=== PATIENT | female | born 1965 | race American Indian/Alaskan Native ===

== ENCOUNTER → 2018-10-09 | Outpatient (CLI) | payer MEDICARE, OTHER ==
[~2018-10-09] MED LIST: ? CHOLESTEROL MED; ACEBUTCAFT PO; ALBIPROI INH; ALBU90OI6 INH; ALBU90OI61 INH; AMIT50; AMIT50 PO; AMIT75 PO; AMOCLA875 PO; ANTOXYBENA LEFTEAR; ASPI81CH PO; ATOR40TA; AZIT250 PO; BENZ100A PO; Bactrim Ds Tab1 EACH PO; CEPH500 PO; CODACE30 PO; CYCL10 PO; Crutch1 EACH MISC; DOXE25 PO; FLUSAL2505; GABA300 PO; HYDACE5; HYDACE7.5; Hydrocodone-Ap1 EA23 PO; LEVO750 PO; Lovastatin20 MG PO; MECL25 PO; METCAR500; METF500C PO; NAPR500 PO; Norco 10-325 T1 EACH PO; OXYACE5T PO; OXYACE7.5T PO; OXYC10ER PO; OXYC15ER PO; OXYC5; PRED10 PO; PROC10 PO; Percocet 5-3251 EACH PO; Prednisone20 MG PO; QUET200; QUET200 PO; ROPI2 PO; RXTRAM50 PO; Ropinirole HCl4 MG PO; SERT100 PO; SERT50 PO; SIMV10 PO; TOPI50 PO; TRAM50 PO; Valium5 MG PO; Ventolin/Prove6.7 GM INH; [UNRECOGNIZED DRUG - REMARK]
== END | disposition home or self-care (01) ==
LOC: LAB SHORT 13:54 → LAB 13:54
DX: E11.9 Type 2 diabetes mellitus without complications (principal)
CPT/HCPCS: 82043

== ENCOUNTER → 2019-10-09 | Outpatient (CLI) | payer MEDICARE, OTHER | END | disposition home or self-care (01) | LOC: LAB 19:39 → LAB SHORT 19:39 | DX: R10.9 Unspecified abdominal pain (principal) | CPT/HCPCS: 87077; 87086; 87186 ==

== ENCOUNTER 2021-01-18 18:14 | Emergency (ER) | payer MEDICARE, OTHER ==
[~2021-01-18] VITALS: Ht 160 cm; Wt 83.0 kg
[~2021-01-18 18:14] MED LIST changes: +Amitriptyline100 MG PO; +FLUT1DIS5 INH; +Flonase 0.05% N16 GM; +GLIP10 PO; +LEVSOD75 PO; +MONT10T PO; +Neurontin 300300 MG PO; +QUET100 PO
[2021-01-18 18:46] LABS: BASOPHILS ABSOLUTE AUTO 0.12 K/mm3 (0.00-0.23); BASOPHILS PERCENT AUTO 1 % (0-2); EOSINOPHILS ABSOLUTE AUTO 0.29 K/mm3 (0.00-0.68); EOSINOPHILS PERCENT AUTO 2 % (0-6); Hematocrit 46.6 % (33.0-51.0); Hemoglobin 15.6 g/dL (11.5-16.0); IMMATURE GRAN PERCENT AUTO 1 % (0-1); LYMPHOCYTES ABSOLUTE AUTO 6.63 K/mm3 (0.84-5.20); LYMPHOCYTES PERCENT AUTO 40 % (21-46); MONOCYTES ABSOLUTE AUTO 1.04 K/mm3 (0.16-1.47); MONOCYTES PERCENT AUTO 6 % (4-13); Mean Corpuscular HGB 29.1 pg (26.0-34.0); Mean Corpuscular HGB Conc 33.5 g/dL (31.5-36.5); Mean Corpuscular Volume 87 fL (80-100); Mean Platelet Volume 10.9 fL (9.1-12.4); NEUTROPHILS ABSOLUTE AUTO 8.56 K/mm3 (1.96-9.15); NEUTROPHILS PERCENT AUTO 51 % (41-73); Platelet Count 365 K/mm3 (150-400); RDW Coefficient Variation 13.5 % (11.7-14.2); RDW Standard Deviation 43.4 fL (35.1-46.3); Red Blood Cell Count 5.36 M/mm3 (3.80-5.20); White Blood Cell Count 16.74 K/mm3 (4.00-11.30)
[2021-01-18 19:15] LABS: Alanine Aminotransfer (ALT/SGP 41 U/L (12-78); Albumin, Blood 4.1 g/dL (3.4-5.0); Alk Phos 138 U/L (50-136); Anion Gap 7 mmol/L (6-16); Aspartate Aminotrans (AST/SGOT 30 U/L (12-37); Bilirubin, Total 0.3 mg/dL (0.1-1.0); Blood Urea Nitrogen 14 mg/dL (8-24); Bun/Creatinine Ratio 20.5 (12.0-20.0); CO2, Blood 22 mmol/L (21-32); Calcium, Blood 9.8 mg/dL (8.5-10.1); Chloride, Blood 106 mmol/L (98-108); Creatinine, Blood 0.68 mg/dL (0.40-1.00); Globulin, Blood 4.3 g/dL (2.2-4.0); Glomerular Filtration Rate >60 (60-); Glucose, Blood 203 mg/dL (70-99); Potassium, Blood 4.3 mmol/L (3.5-5.5); Sodium, Blood 135 mmol/L (136-145); Total Protein, Blood 8.4 g/dL (6.4-8.2)
[2021-01-18 20:31] LABS: Troponin I <0.015 ng/mL (0.000-0.040)
[2021-01-18] MEDS ORDERED: ALBU2.5V5 INH (23:02)
[2021-01-18] MEDS ORDERED: Prednisone50 MG PO (23:02)
== END 2021-01-18 23:20 | disposition home or self-care (01) ==
LOC: ER 18:14
PROVIDERS: Emergency Medicine
DX: J45.901 Unspecified asthma with (acute) exacerbation (principal); E11.9 Type 2 diabetes mellitus without complications; Z79.899 Other long term (current) drug therapy; Z88.5 Allergy status to narcotic agent
CPT/HCPCS: 71045; 80053; 84484; 85025; 93005; 93010; 94644; 94645; 96365; 96375; 99285-25; A9270; J1100; J3475

== ENCOUNTER → 2021-03-18 | Outpatient (CLI) | payer MEDICARE, OTHER ==
[~2021-03-18] MED LIST changes: +ALBU2.5V5 INH; +Prednisone50 MG PO
== END | disposition home or self-care (01) ==
LOC: LAB SHORT 15:40 → LAB 15:40
DX: E03.9 Hypothyroidism, unspecified (principal)
CPT/HCPCS: 84443

== ENCOUNTER → 2022-04-07 | Outpatient (CLI) | payer MEDICARE, OTHER ==
[2022-04-07 16:12] LABS: Bilirubin, Total 0.2 mg/dL (0.1-1.0); Bun/Creatinine Ratio 21.4 (12.0-20.0); Calcium, Blood 9.6 mg/dL (8.5-10.1); Creatinine, Blood 0.79 mg/dL (0.40-1.00); Globulin, Blood 4.2 g/dL (2.2-4.0); Potassium, Blood 4.4 mmol/L (3.5-5.5); Total Protein, Blood 8.2 g/dL (6.4-8.2)
== END ==
LOC: LAB SHORT 13:10
PROVIDERS: Internal Medicine
DX: M54.50 Low back pain, unspecified (principal)
CPT/HCPCS: 80053

== ENCOUNTER → 2022-10-13 | Outpatient (CLI) | payer MEDICARE, OTHER ==
[2022-10-13 14:55] LABS: BASOPHILS ABSOLUTE AUTO 0.12 K/mm3 (0.00-0.23); BASOPHILS PERCENT AUTO 1 % (0-2); EOSINOPHILS PERCENT AUTO 1 % (0-6); Hematocrit 45.2 % (33.0-51.0); Hemoglobin 14.9 g/dL (11.5-16.0); IMMATURE GRAN ABSOLUTE AUTO 0.05 K/mm3 (0.00-0.10); IMMATURE GRAN PERCENT AUTO 0 % (0-1); LYMPHOCYTES ABSOLUTE AUTO 4.69 K/mm3 (0.84-5.20); LYMPHOCYTES PERCENT AUTO 32 % (21-46); MONOCYTES ABSOLUTE AUTO 0.82 K/mm3 (0.16-1.47); MONOCYTES PERCENT AUTO 6 % (4-13); Mean Corpuscular HGB 28.9 pg (26.0-34.0); Mean Corpuscular Volume 88 fL (80-100); NEUTROPHILS ABSOLUTE AUTO 8.63 K/mm3 (1.96-9.15); NEUTROPHILS PERCENT AUTO 60 % (41-73); Platelet Count 346 K/mm3 (150-400); RDW Coefficient Variation 13.9 % (11.7-14.2); Red Blood Cell Count 5.15 M/mm3 (3.80-5.20); White Blood Cell Count 14.51 K/mm3 (4.00-11.30)
[2022-10-13 15:46] LABS: Alanine Aminotransfer (ALT/SGP 54 U/L (12-78); Albumin, Blood 3.8 g/dL (3.4-5.0); Albumin/Globulin Ratio 0.9 (0.8-1.8); Alk Phos 134 U/L (50-136); Anion Gap 7 mmol/L (6-16); Aspartate Aminotrans (AST/SGOT 30 U/L (12-37); Bilirubin, Total 0.2 mg/dL (0.1-1.0); Blood Urea Nitrogen 19 mg/dL (8-24); Bun/Creatinine Ratio 23.3 (12.0-20.0); CHOL/HDL RATIO 5.9; CO2, Blood 26 mmol/L (21-32); Calcium, Blood 9.4 mg/dL (8.5-10.1); Chloride, Blood 105 mmol/L (98-108); Cholesterol 261 mg/dL (50-200); Creatinine, Blood 0.82 mg/dL (0.40-1.00); Globulin, Blood 4.2 g/dL (2.2-4.0); Glomerular Filtration Rate 83 (60-); Glucose, Blood 154 mg/dL (70-99); HDL Cholesterol 44 mg/dL (>39); LDL/HDL RATIO 3.8; Low Density Lipoprotein Chol 168 mg/dL (0-110); Potassium, Blood 4.6 mmol/L (3.5-5.5); Sodium, Blood 138 mmol/L (136-145); Triglycerides 244 mg/dL (30-160); Very Low Density Lipoprot Chol 48 mg/dL (6-32)
== END | disposition home or self-care (01) ==
LOC: LAB SHORT 11:46
PROVIDERS: Family Medicine
DX: E03.9 Hypothyroidism, unspecified (principal); E11.9 Type 2 diabetes mellitus without complications; E78.5 Hyperlipidemia, unspecified; Z79.84 Long term (current) use of oral hypoglycemic drugs
CPT/HCPCS: 80053; 80061; 83036; 84443; 85025

== ENCOUNTER → 2024-02-07 | Outpatient (CLI) | payer MEDICARE, OTHER | END | disposition home or self-care (01) | LOC: LAB SHORT 16:31 → LAB 16:31 | DX: E11.9 Type 2 diabetes mellitus without complications (principal); Z79.84 Long term (current) use of oral hypoglycemic drugs ==

== ENCOUNTER 2024-04-11 13:00 | Emergency (ER) | payer MEDICARE, OTHER ==
[~2024-04-11] VITALS: Ht 160 cm; Wt 78.9 kg
[2024-04-11 13:22] VITALS: BP 122/66
== END 2024-04-11 13:29 | disposition left against medical advice (07) ==
LOC: ER 13:00
DX: E11.65 Type 2 diabetes mellitus with hyperglycemia (principal); Z53.21 Procedure and treatment not carried out due to patient leaving prior to being seen by health care provider
CPT/HCPCS: 82947

== ENCOUNTER → 2024-07-13 | Outpatient (CLI) | payer MEDICARE, OTHER | LOC: LAB 15:16 → LAB SHORT 15:16 | DX: R10.13 Epigastric pain (principal) | CPT/HCPCS: 83690 ==

== ENCOUNTER 2025-01-29 19:15 | Inpatient (IN) | payer MEDICARE, OTHER ==
[~2025-01-29] VITALS: Ht 160 cm; Wt 76.7 kg
[2025-01-29 19:50] LABS: BASOPHILS ABSOLUTE AUTO 0.07 K/mm3 (0.00-0.23); BASOPHILS PERCENT AUTO 1 % (0-2); EOSINOPHILS ABSOLUTE AUTO 0.19 K/mm3 (0.00-0.68); EOSINOPHILS PERCENT AUTO 2 % (0-6); Hematocrit 42.8 % (33.0-51.0); Hemoglobin 14.3 g/dL (11.5-16.0); IMMATURE GRAN ABSOLUTE AUTO 0.06 K/mm3 (0.00-0.10); IMMATURE GRAN PERCENT AUTO 1 % (0-1); LYMPHOCYTES ABSOLUTE AUTO 2.69 K/mm3 (0.84-5.20); LYMPHOCYTES PERCENT AUTO 22 % (21-46); MONOCYTES ABSOLUTE AUTO 0.61 K/mm3 (0.16-1.47); MONOCYTES PERCENT AUTO 5 % (4-13); Mean Corpuscular HGB 27.4 pg (26.0-34.0); Mean Corpuscular HGB Conc 33.4 g/dL (31.5-36.5); Mean Corpuscular Volume 82 fL (80-100); Mean Platelet Volume 11.2 fL (9.1-12.4); NEUTROPHILS ABSOLUTE AUTO 8.37 K/mm3 (1.96-9.15); NEUTROPHILS PERCENT AUTO 70 % (41-73); Platelet Count 329 K/mm3 (150-400); RDW Coefficient Variation 13.8 % (11.7-14.2); RDW Standard Deviation 41.3 fL (35.1-46.3); Red Blood Cell Count 5.22 M/mm3 (3.80-5.20); White Blood Cell Count 11.99 K/mm3 (4.00-11.30)
[2025-01-29 20:37] LABS: Albumin/Globulin Ratio 0.9 (0.8-1.8); Bilirubin, Total 0.6 mg/dL (0.1-1.0); Bun/Creatinine Ratio 20.7 (12.0-20.0); Calcium, Blood 9.7 mg/dL (8.5-10.1); Creatinine, Blood 0.53 mg/dL (0.40-1.00); Globulin, Blood 4.6 g/dL (2.2-4.0); Potassium, Blood 5.3 mmol/L (3.5-5.5); Total Protein, Blood 8.6 g/dL (6.4-8.2)
[2025-01-29 20:51] LABS: Base Excess Venous 2.5 mmol/L; Bicarbonate Venous 26.4 mmol/L (24.0-30.0); PCO2 Venous 40.2 mmHg (38-42); pH Blood Venous 7.43 (7.34-7.37)
[2025-01-29] MEDS ORDERED: Metoclopramide HCl 5MG / ML 2ML Vial IV ONE (21:10)
[2025-01-29] MEDS ORDERED: Lactated Ringer's 1,000 ML IV ONE ×2 (21:10→23:10)
[2025-01-29] MEDS ORDERED: Morphine Sulfate 4 MG/1 ML Injection IV ONE ×2 (21:10→22:35)
[2025-01-29 21:27] LABS: Base Excess Venous 4.7 mmol/L; Bicarbonate Venous 27.8 mmol/L (24.0-30.0); pH Blood Venous 7.41 (7.34-7.37)
[2025-01-29 21:28] LABS: Source, Urine Clean Catch
[2025-01-29 21:40] LABS: Bilirubin, Urine Neg (Neg); Blood, Urine 1+ (Neg); Glucose Qualitative, Urine 4+ (Neg); Ketones, Urine 1+ (Neg); Leukocyte Esterase, Urine Neg (Neg); Nitrite, Urine Neg (Neg); Protein, Urine 1+ (Neg); Urobilinogen, Urine NORM (Normal)
[2025-01-29 21:48] LABS: Appearance, Urine Hazy (Clear); Color, Urine Pale Yellow (P-Yellow); Red Blood Cells, Urine 0-2 /hpf (0-2)
[2025-01-29 21:49] LABS: Bacteria Many /hpf; Squamous Epithelial Cells Not Seen /hpf (Few)
[2025-01-29] MEDS ORDERED: OXYCODONE-ACET1 EAC3 PO (22:35)
[2025-01-29] MEDS ORDERED: JARDIANCE25 MG PO (22:36)
[2025-01-29] MEDS ORDERED: CYMBALTA30 M2 PO (22:36)
[2025-01-29] MEDS ORDERED: PREG150 PO (22:37)
[2025-01-29] MEDS ORDERED: EUTHYROX50 MC1 PO (22:37)
[2025-01-29] MEDS ORDERED: GLUCOPHAGE1000 M1 PO (22:37)
[2025-01-29] MEDS ORDERED: ROSUVASTATIN CA10 MG PO (22:38)
[2025-01-29] MEDS ORDERED: levETIRAcetam 500 MG in NS 100 ML IV SCH (23:10)
[2025-01-29] MEDS ORDERED: HYDROmorphone HCl/Pf 1MG SYR IV ONE (23:10)
[2025-01-29] MEDS ORDERED: CefTRIAXone Sodium 1,000 MG in NS 50 ML IV ONE (23:10)
[2025-01-30] MEDS ORDERED: Metoclopramide HCl 5MG / ML 2ML Vial IV ONE (00:05)
[2025-01-30] MEDS ORDERED: DiphenhydrAMINE HCl 50 MG/ML 1ML Vial IV ONE ×2 (00:05→04:30)
[2025-01-30] MEDS ORDERED: HYDROmorphone HCl/Pf 1MG SYR IV ONE (00:05)
[2025-01-30] MEDS ORDERED: Acetaminophen 325 MG TABLET PO PRN (01:10)
[2025-01-30] MEDS ORDERED: Insulin Regular 100 Unit/ML 1ML Dose SC ONE (02:30)
[2025-01-30 03:00] VITALS: BP 119/70
[2025-01-30] MEDS ORDERED: Ondansetron HCl 2 MG / ML 2ML Vial IV PRN (03:35)
[2025-01-30] MEDS ORDERED: NS 1,000 ML IV SCH (03:35)
[2025-01-30] MEDS ORDERED: Insulin Glargine-Yfgn 100 Unit/mL 3 ML SYR SC SCH (05:00)
[2025-01-30] MEDS ORDERED: Levothyroxine Sodium 0.05 MG Tab PO SCH (06:00)
[2025-01-30] MEDS ORDERED: Insulin Human Lispro 100 Units/ML 3ML Syringe SC SCH ×2 (06:00→16:30)
[2025-01-30 06:03] LABS: BASOPHILS ABSOLUTE AUTO 0.06 K/mm3 (0.00-0.23); BASOPHILS PERCENT AUTO 1 % (0-2); EOSINOPHILS ABSOLUTE AUTO 0.32 K/mm3 (0.00-0.68); EOSINOPHILS PERCENT AUTO 3 % (0-6); Hematocrit 37.6 % (33.0-51.0); Hemoglobin 12.5 g/dL (11.5-16.0); IMMATURE GRAN ABSOLUTE AUTO 0.04 K/mm3 (0.00-0.10); IMMATURE GRAN PERCENT AUTO 0 % (0-1); LYMPHOCYTES ABSOLUTE AUTO 4.84 K/mm3 (0.84-5.20); LYMPHOCYTES PERCENT AUTO 40 % (21-46); MONOCYTES ABSOLUTE AUTO 0.75 K/mm3 (0.16-1.47); MONOCYTES PERCENT AUTO 6 % (4-13); Mean Corpuscular HGB 27.7 pg (26.0-34.0); Mean Corpuscular HGB Conc 33.2 g/dL (31.5-36.5); Mean Corpuscular Volume 83 fL (80-100); Mean Platelet Volume 10.9 fL (9.1-12.4); NEUTROPHILS ABSOLUTE AUTO 6.23 K/mm3 (1.96-9.15); NEUTROPHILS PERCENT AUTO 51 % (41-73); Platelet Count 261 K/mm3 (150-400); RDW Coefficient Variation 13.7 % (11.7-14.2); RDW Standard Deviation 42.1 fL (35.1-46.3); Red Blood Cell Count 4.52 M/mm3 (3.80-5.20); White Blood Cell Count 12.24 K/mm3 (4.00-11.30)
--- NOTE | 2025-01-30 06:09 | NUR ---
SHIFT SUMMARY PT ARRIVED TO U @ 0330. PT CURRENTLY A&OX4. HAS TROUBLE RECALLING EVENTS LEADING UP TO BRUISE OF FOREHEAD HOWEVER ABLE TO ANSWER ALL QUESTIONS APPROPRIARTELY AND CLEARLY. NIHSS 2. PT C/O MOD-SEVERE HEADACHE WITH NECK PAIN. PRN TYLENOL GIVEN WITH MODERATE EFFECT. PT ARRIVED TO UNIT WITH ENTIRE BODY ITCHING, NO SWELLING OR HIVES NOTED. MD NOTIFIED AND ONE TIME DOSE OF DIPHENHYDRAMINE GIVEN X1 WITH GOOD EFFECT. PT HOOKED UP TO NS @ 100CC/HR. CBG TAKEN UPON ARRIVAL, 320. INSULIN ORDERS PER EMAR GIVEN. WILL CONTINUE TO MONITOR. PT RESTING COMFORTABLY WITH NO FURTHER QUESTIONS OR CONCERNS AT THIS TIME. BED ALARM SET. WILL CONTINUE WITH PLAN OF CARE.
[2025-01-30 06:27] LABS: Albumin, Blood 3.3 g/dL (3.4-5.0); Albumin/Globulin Ratio 0.9 (0.8-1.8); Bilirubin, Total 0.5 mg/dL (0.1-1.0); Bun/Creatinine Ratio 15.1 (12.0-20.0); Creatinine, Blood 0.6 mg/dL (0.40-1.00); Globulin, Blood 3.5 g/dL (2.2-4.0); Magnesium, Blood 2.1 mg/dL (1.6-2.4); Potassium, Blood 3.4 mmol/L (3.5-5.5); Total Protein, Blood 6.8 g/dL (6.4-8.2)
[2025-01-30] MEDS ORDERED: Lactobacil 2-S.Thermo-Bifido 1 1 Cap PO SCH (09:00)
[2025-01-30] MEDS ORDERED: levETIRAcetam 500 MG in NS 100 ML IV SCH (09:00)
[2025-01-30 09:18] VITALS: BP 120/73
[2025-01-30] MEDS ORDERED: DiphenhydrAMINE HCl 50 MG/ML 1ML Vial IV PRN (10:10)
[2025-01-30] MEDS ORDERED: NS KCl 20mEq 1,000 ML IV SCH (10:55)
[2025-01-30 12:21] VITALS: BP 107/67
[2025-01-30] MEDS ORDERED: OxyCODONE 5 mg/Acetamin 325 mg TABLET PO PRN (14:55)
[2025-01-30] MEDS ORDERED: Albuterol 2.5 MG/3 ML VIAL INH PRN (15:00)
[2025-01-30] MEDS ORDERED: Mometasone/Formoterol MDI 200/5 mcg 13 GM INH SCH (15:00)
[2025-01-30 15:53] VITALS: BP 113/55
[2025-01-30] MEDS ORDERED: Polyethylene Glycol 3350 17 gm PO SCH (17:00)
--- NOTE | 2025-01-30 18:43 | NUR ---
End of shift note. Pt has been awake chatting with her son for most of the day. Pt remains A&Ox4 some forgetfulness noted, may be baseline. Pt seems to have some weakness to right hand, Provider is aware. BLE baseline weakness. Neuro checks Q4hr. Pt did have one episode of word-finding issues. Son reported that it is not uncommon for Pt to mix up her words at baseline. Pt also had a significant complaint of headache pain. Pt was given PRN med, ice pain and she fell right asleep. Neuro exam was stable at the time of headache pain. CBGs elevated this shift. 256, 220. Pt was NPO for most of the day, advanced to clear liquids for dinner. Repeat head CT; stable subdural. ABD/ Pelvis CT this afternoon. Pt is able to make needs known, call light is within reach.
[2025-01-30 19:47] VITALS: BP 103/48
--- NOTE | 2025-01-30 20:06 | NUR ---
RECEIVED REPORT FROM [employer] RO[employer] SERVICER.
--- NOTE | 2025-01-30 20:19 | NUR ---
PT ARRIVED TO RM 304 VIA HOSPITAL BED. A/O. SON AT BEDSIDE. PT ABLE TO MAKE NEEDS KNOWN. ON RA. TELE IN PLACE. WILL CONTINUE TO PROVIDE CARE T/O SHIFT. CALL LT IN REACH.
[2025-01-30] MEDS ORDERED: NS 250 ML IV PRN (20:25)
[2025-01-30] MEDS ORDERED: Pregabalin 75 MG Cap PO SCH (21:00)
[2025-01-30] MEDS ORDERED: QUEtiapine Fumarate 100 MG Tab PO SCH (21:00)
[2025-01-30] MEDS ORDERED: Amitriptyline HCl 50 MG Tab PO SCH (21:00)
[2025-01-30] MEDS ORDERED: Gabapentin 300 MG Cap PO SCH (21:00)
[2025-01-30] MEDS ORDERED: CefTRIAXone Sodium 1,000 MG in NS 100 ML IV SCH (21:00)
[2025-01-30 23:31] VITALS: BP 106/54
--- NOTE | 2025-01-30 23:46 | NUR ---
PT VERY DROWSY. WAKES UP TO NAME, ABLE TO ANSWER QUESTIONS. VSS. REPOSITIONED PT FOR COMFORT. PT'S SON ASLEEP AT BEDSIDE. CALL LT IN REACH.
--- NOTE | 2025-01-31 00:46 | NUR ---
PT RESTING QUIETLY. SON ASLEEP AT BEDSIDE. CALL LT IN REACH.
--- NOTE | 2025-01-31 03:15 | NUR ---
PT RESTING QUIETLY. RESP EVEN AND UNLABORED ON RA. TELE IN PLACE. CALL LT IN REACH.
--- NOTE | 2025-01-31 04:19 | NUR ---
SHIFT SUMMARY: PCU TRANSFER AT 2018. A/O X 4 WHEN ARRIVED TO FLOOR. SON AT BEDSIDE. MEDICATED WITH 12.5 MG OF IV BENADRYL PRIOR TO KEPPRA INFUSION, PT STATES SHE GETS ITCHY WITH THE KEPPRA. PT DID WELL WITH KEPPRA INFUSION. BEFORE PT TRANSFERRED TO MEDICAL FLOOR, PT WAS GIVEN ALL HER PO MEDS PRIOR TO TRANSFER, LYRICA 150 MG, ELAVIL 100 MG, AND SEROQUEL 100 MG; PT SLEPT HARD T/O SHIFT, VSS, HR ON TELE WAS 59-63, THESE MEDS AND DOSES ARE ON HER HOME MED LIST. NO SEIZURE ACTIVITY NOTED. NO CHANGE IN NEURO CHECKS. WILL CONTINUE TO PROVIDE CARE UNTIL SHIFT REPORT TO ONCOMING NURSE. CALL LT IN REACH.
[2025-01-31 04:39] VITALS: BP 107/56
[2025-01-31 04:55] LABS: BASOPHILS ABSOLUTE AUTO 0.05 K/mm3 (0.00-0.23); BASOPHILS PERCENT AUTO 1 % (0-2); EOSINOPHILS ABSOLUTE AUTO 0.35 K/mm3 (0.00-0.68); EOSINOPHILS PERCENT AUTO 5 % (0-6); Hematocrit 36.5 % (33.0-51.0); Hemoglobin 11.9 g/dL (11.5-16.0); IMMATURE GRAN ABSOLUTE AUTO 0.02 K/mm3 (0.00-0.10); IMMATURE GRAN PERCENT AUTO 0 % (0-1); LYMPHOCYTES ABSOLUTE AUTO 3.18 K/mm3 (0.84-5.20); LYMPHOCYTES PERCENT AUTO 43 % (21-46); MONOCYTES ABSOLUTE AUTO 0.52 K/mm3 (0.16-1.47); MONOCYTES PERCENT AUTO 7 % (4-13); Mean Corpuscular HGB 27.8 pg (26.0-34.0); Mean Corpuscular HGB Conc 32.6 g/dL (31.5-36.5); Mean Corpuscular Volume 85 fL (80-100); Mean Platelet Volume 11.3 fL (9.1-12.4); NEUTROPHILS ABSOLUTE AUTO 3.22 K/mm3 (1.96-9.15); NEUTROPHILS PERCENT AUTO 44 % (41-73); Platelet Count 240 K/mm3 (150-400); RDW Standard Deviation 43.5 fL (35.1-46.3); Red Blood Cell Count 4.28 M/mm3 (3.80-5.20); White Blood Cell Count 7.34 K/mm3 (4.00-11.30)
[2025-01-31 05:28] LABS: Albumin/Globulin Ratio 0.9 (0.8-1.8); Bilirubin, Total 0.4 mg/dL (0.1-1.0); Bun/Creatinine Ratio 16.3 (12.0-20.0); Calcium, Blood 8.8 mg/dL (8.5-10.1); Creatinine, Blood 0.55 mg/dL (0.40-1.00); Globulin, Blood 3.2 g/dL (2.2-4.0); Potassium, Blood 3.9 mmol/L (3.5-5.5); Total Protein, Blood 6.2 g/dL (6.4-8.2)
[2025-01-31 07:21] VITALS: BP 109/59
[2025-01-31] MEDS ORDERED: rOPINIRole HCl 1 MG Tab PO SCH (09:00)
[2025-01-31] MEDS ORDERED: Montelukast Sodium 10 MG Tab PO SCH (09:00)
[2025-01-31] MEDS ORDERED: LevETIRAcetam 500 MG Tab PO SCH (09:00)
[2025-01-31] MEDS ORDERED: Rosuvastatin Calcium 10 MG Tab PO SCH (09:00)
[2025-01-31] MEDS ORDERED: GLIP5ER PO (11:22)
[2025-01-31] MEDS ORDERED: INCRUSE ELLIPTA INH (11:24)
[2025-01-31] MEDS ORDERED: ALBU90OI INH (11:24)
[2025-01-31] MEDS ORDERED: OZEMPIC1 MG/0.72 SC (11:25)
[2025-01-31] MEDS ORDERED: Methocarbamol500 MG PO (11:26)
[2025-01-31] MEDS ORDERED: MIRALAX17 GM PO (11:26)
[2025-01-31] MEDS ORDERED: BENADRYL25 MG PO (13:29)
[2025-01-31] MEDS ORDERED: CEFU500T30 PO (13:29)
[2025-01-31] MEDS ORDERED: VISBIOME 112.51 EACH PO (13:30)
[2025-01-31] MEDS ORDERED: LEVE500 PO (13:31)
--- NOTE | 2025-01-31 14:04 | NUR ---
DISCHARGE NOTE: WENT OVER DISCHARGE WITH PATIENT AND SON AT BEDSIDE. IV'S AND TELE REMOVED. PATIENT BELONGINGS COLLECTED. PATIENT WHEELED DOWN BY [employer] TO [facility] [employer]. NO SIGNS OR SYMPTOMS OF DISTRESS WITH DISCHARGE.
== END 2025-01-31 14:20 | disposition home or self-care (01) | DRG 83 ==
LOC: ER 19:15 → PCU 19:16 → ERHOLD 19:16 → PCU 01-30 03:26 → MEDS 01-30 20:19
PROVIDERS: Family Medicine; Internal Medicine; Student in an Organized Health Care Education/Training Program; ADMIT Student in an Organized Health Care Education/Training Program
DX: S06.5XAA Traumatic subdural hemorrhage with loss of consciousness status unknown, initial encounter (principal); E87.1 Hypo-osmolality and hyponatremia; N39.0 Urinary tract infection, site not specified; R47.01 Aphasia; E11.65 Type 2 diabetes mellitus with hyperglycemia; E03.9 Hypothyroidism, unspecified; G89.29 Other chronic pain; G25.81 Restless legs syndrome; B96.1 Klebsiella pneumoniae [K. pneumoniae] as the cause of diseases classified elsewhere; R29.702 NIHSS score 2; G47.00 Insomnia, unspecified; D72.829 Elevated white blood cell count, unspecified; E87.6 Hypokalemia; K59.00 Constipation, unspecified; E78.5 Hyperlipidemia, unspecified; E11.42 Type 2 diabetes mellitus with diabetic polyneuropathy; J45.909 Unspecified asthma, uncomplicated; Z79.51 Long term (current) use of inhaled steroids; Z79.891 Long term (current) use of opiate analgesic; Z79.890 Hormone replacement therapy; Z79.84 Long term (current) use of oral hypoglycemic drugs; Z79.899 Other long term (current) drug therapy; Z88.5 Allergy status to narcotic agent; Z79.52 Long term (current) use of systemic steroids; Z90.710 Acquired absence of both cervix and uterus; Z90.49 Acquired absence of other specified parts of digestive tract; Z98.890 Other specified postprocedural states; W19.XXXA Unspecified fall, initial encounter
CPT/HCPCS: 36415; 70450; 74177; 80053; 81001; 82803; 82947; 83690; 83735; 85025; 87077; 87086; 87186; 94640; 94664; 94760; 96361; 96365; 96367; 96375; 96376; 97110; 97116; 97161; 97530; 99285-25; A9270; G0378; J0696; J1171; J1200; J1815; J1953; J2270; J2765; J3480; J7030; J7050; J7120; Q9967

== ENCOUNTER 2025-03-06 19:59 | Emergency (ER) | payer MEDICARE, OTHER ==
[~2025-03-06] VITALS: Ht 162.6 cm; Wt 81.7 kg
[~2025-03-06 19:59] MED LIST changes: +ALBU90OI INH; +BENADRYL25 MG PO; +CEFU500T30 PO; +CYMBALTA30 M2 PO; +EUTHYROX50 MC1 PO; +GLIP5ER PO; +GLUCOPHAGE1000 M1 PO; +INCRUSE ELLIPTA INH; +JARDIANCE25 MG PO; +LEVE500 PO; +MIRALAX17 GM PO; +Methocarbamol500 MG PO; +OXYCODONE-ACET1 EAC3 PO; +OZEMPIC1 MG/0.72 SC; +PREG150 PO; +ROSUVASTATIN CA10 MG PO; +VISBIOME 112.51 EACH PO
[2025-03-06 21:34] VITALS: BP 125/61
== END 2025-03-06 23:49 | disposition home or self-care (01) ==
LOC: ER 19:59
DX: R55 Syncope and collapse (principal); E11.9 Type 2 diabetes mellitus without complications; Z86.69 Personal history of other diseases of the nervous system and sense organs; Z88.5 Allergy status to narcotic agent; Z79.84 Long term (current) use of oral hypoglycemic drugs; Z79.890 Hormone replacement therapy; Z79.85 Long-term (current) use of injectable non-insulin antidiabetic drugs; Z79.899 Other long term (current) drug therapy
CPT/HCPCS: 70450; 93005; 93010; 99284-25

== ENCOUNTER 2025-04-24 11:54 | Emergency (ER) | payer MEDICARE, OTHER ==
[~2025-04-24] VITALS: Ht 160 cm; Wt 75.8 kg
[2025-04-24 12:23] LABS: BASOPHILS ABSOLUTE AUTO 0.08 K/mm3 (0.00-0.23); BASOPHILS PERCENT AUTO 1 % (0-2); EOSINOPHILS ABSOLUTE AUTO 0.30 K/mm3 (0.00-0.68); EOSINOPHILS PERCENT AUTO 3 % (0-6); Hematocrit 38.8 % (33.0-51.0); Hemoglobin 12.6 g/dL (11.5-16.0); IMMATURE GRAN ABSOLUTE AUTO 0.03 K/mm3 (0.00-0.10); IMMATURE GRAN PERCENT AUTO 0 % (0-1); LYMPHOCYTES ABSOLUTE AUTO 4.60 K/mm3 (0.84-5.20); LYMPHOCYTES PERCENT AUTO 43 % (21-46); MONOCYTES ABSOLUTE AUTO 0.83 K/mm3 (0.16-1.47); MONOCYTES PERCENT AUTO 8 % (4-13); Mean Corpuscular HGB Conc 32.5 g/dL (31.5-36.5); Mean Corpuscular Volume 85 fL (80-100); NEUTROPHILS ABSOLUTE AUTO 4.77 K/mm3 (1.96-9.15); NEUTROPHILS PERCENT AUTO 45 % (41-73); NRBC ABSOLUTE 0.00 K/mm3 (0.00-0.02); NRBC Auto 0.0 /100 WBC (0.0-0.2); Platelet Count 262 K/mm3 (150-400); RDW Coefficient Variation 14.6 % (11.7-14.2); RDW Standard Deviation 45.1 fL (35.1-46.3)
[2025-04-24 12:36] LABS: Alanine Aminotransfer (ALT/SGP 21.0 U/L (12-78); Albumin, Blood 3.6 g/dL (3.4-5.0); Albumin/Globulin Ratio 0.9 (0.8-1.8); Anion Gap 7.0 mmol/L (3-11); Aspartate Aminotrans (AST/SGOT 19.0 U/L (12-37); Bilirubin, Total 0.4 mg/dL (0.1-1.0); Blood Urea Nitrogen 18.0 mg/dL (8-24); CO2, Blood 26.0 mmol/L (21-32); Calcium, Blood 9.1 mg/dL (8.5-10.1); Chloride, Blood 108.0 mmol/L (98-108); Creatinine, Blood 0.51 mg/dL (0.40-1.00); Globulin, Blood 4.1 g/dL (2.2-4.0); Glucose, Blood 122.0 mg/dL (70-99); Potassium, Blood 4.4 mmol/L (3.5-5.5); Sodium, Blood 137.0 mmol/L (136-145); Total Protein, Blood 7.7 g/dL (6.4-8.2)
[2025-04-24] MEDS ORDERED: Prochlorperazine Edisylate 10 mg Vial IV ONE (13:25)
[2025-04-24] MEDS ORDERED: NS 1,000 ML IV SCH (13:25)
[2025-04-24] MEDS ORDERED: Dexamethasone Sod Phos 10 MG/ML 1ML VIAL IV ONE (13:25)
[2025-04-24] MEDS ORDERED: DiphenhydrAMINE HCl 50 MG/ML 1ML Vial IV ONE (13:25)
[2025-04-24] MEDS ORDERED: HYDROmorphone HCl/Pf 1MG SYR IV ONE (15:05)
[2025-04-24 15:43] VITALS: BP 136/84
== END 2025-04-24 15:52 | disposition home or self-care (01) ==
LOC: ER 11:54
PROVIDERS: Student in an Organized Health Care Education/Training Program
DX: R51.9 Headache, unspecified (principal); H53.8 Other visual disturbances; E03.9 Hypothyroidism, unspecified; E78.5 Hyperlipidemia, unspecified; E11.42 Type 2 diabetes mellitus with diabetic polyneuropathy; J45.909 Unspecified asthma, uncomplicated; Z88.5 Allergy status to narcotic agent; Z88.8 Allergy status to other drugs, medicaments and biological substances; Z79.84 Long term (current) use of oral hypoglycemic drugs; Z79.890 Hormone replacement therapy; Z79.85 Long-term (current) use of injectable non-insulin antidiabetic drugs; Z79.899 Other long term (current) drug therapy
CPT/HCPCS: 70450; 80053; 85025; 93005; 93010; 96361; 96374; 96375; 99284-25; A9270; J0780; J1100; J1171; J1200; J7030

== ENCOUNTER 2025-07-01 15:05 | Emergency (ER) | payer MEDICARE, OTHER ==
[~2025-07-01] VITALS: Ht 160 cm; Wt 74.8 kg
[2025-07-01 15:16] VITALS: BP 116/70
== END 2025-07-01 17:29 | disposition home or self-care (01) ==
LOC: ER 15:05
DX: S01.01XA Laceration without foreign body of scalp, initial encounter (principal); S31.111A Laceration without foreign body of abdominal wall, left upper quadrant without penetration into peritoneal cavity, initial encounter; E11.9 Type 2 diabetes mellitus without complications; Z88.5 Allergy status to narcotic agent; Z88.8 Allergy status to other drugs, medicaments and biological substances; Z79.84 Long term (current) use of oral hypoglycemic drugs; Z79.890 Hormone replacement therapy; Z79.85 Long-term (current) use of injectable non-insulin antidiabetic drugs; Z79.899 Other long term (current) drug therapy; W18.39XA Other fall on same level, initial encounter; W26.0XXA Contact with knife, initial encounter
CPT/HCPCS: 12001; 70450; 72125; 99283-25

== ENCOUNTER → 2025-08-12 | Outpatient (CLI) | payer MEDICARE, OTHER | LOC: LAB SHORT 15:43 → LAB 15:43 | DX: S01.00XA Unspecified open wound of scalp, initial encounter (principal) | CPT/HCPCS: 87070; 87075; 87077; 87147; 87186; 87205 ==

== ENCOUNTER 2025-09-06 17:11 | Emergency (ER) | payer MEDICARE, OTHER ==
[~2025-09-06] VITALS: Ht 160 cm; Wt 79.8 kg
[2025-09-06] MEDS ORDERED: Prochlorperazine Edisylate 10 mg Vial IV ONE (19:00)
[2025-09-06] MEDS ORDERED: Ketorolac Tromethamine 15mg Vial IV ONE (19:00)
[2025-09-06 19:09] LABS: BASOPHILS ABSOLUTE AUTO 0.07 K/mm3 (0.00-0.23); BASOPHILS PERCENT AUTO 1 % (0-2); EOSINOPHILS ABSOLUTE AUTO 0.16 K/mm3 (0.00-0.68); EOSINOPHILS PERCENT AUTO 1 % (0-6); Hematocrit 34.4 % (33.0-51.0); Hemoglobin 10.6 g/dL (11.5-16.0); IMMATURE GRAN ABSOLUTE AUTO 0.06 K/mm3 (0.00-0.10); IMMATURE GRAN PERCENT AUTO 1 % (0-1); LYMPHOCYTES ABSOLUTE AUTO 3.06 K/mm3 (0.84-5.20); LYMPHOCYTES PERCENT AUTO 24 % (21-46); MONOCYTES ABSOLUTE AUTO 0.93 K/mm3 (0.16-1.47); MONOCYTES PERCENT AUTO 7 % (4-13); Mean Corpuscular HGB Conc 30.8 g/dL (31.5-36.5); Mean Corpuscular Volume 74 fL (80-100); NEUTROPHILS ABSOLUTE AUTO 8.27 K/mm3 (1.96-9.15); NEUTROPHILS PERCENT AUTO 66 % (41-73); NRBC ABSOLUTE 0.00 K/mm3 (0.00-0.02); NRBC Auto 0.0 /100 WBC (0.0-0.2); Platelet Count 254 K/mm3 (150-400); RDW Coefficient Variation 16.2 % (11.7-14.2); RDW Standard Deviation 42.9 fL (35.1-46.3)
[2025-09-07 01:30] VITALS: BP 112/54
== END 2025-09-07 01:45 | disposition home or self-care (01) ==
LOC: ER 17:11
PROVIDERS: Emergency Medicine
DX: S06.5X0A Traumatic subdural hemorrhage without loss of consciousness, initial encounter (principal); X58.XXXA Exposure to other specified factors, initial encounter; Z88.5 Allergy status to narcotic agent; Z88.8 Allergy status to other drugs, medicaments and biological substances; Z79.84 Long term (current) use of oral hypoglycemic drugs; Z79.899 Other long term (current) drug therapy
CPT/HCPCS: 70450; 85025; 93005; 93010; 96374; 96375; 99284-25; J0780; J1885

== ENCOUNTER 2025-09-09 13:41 | Emergency (ER) | payer MEDICARE, OTHER ==
[~2025-09-09] VITALS: Ht 160 cm; Wt 77.1 kg
[2025-09-09 14:20] LABS: BASOPHILS ABSOLUTE AUTO 0.08 K/mm3 (0.00-0.23); BASOPHILS PERCENT AUTO 1 % (0-2); EOSINOPHILS ABSOLUTE AUTO 0.22 K/mm3 (0.00-0.68); EOSINOPHILS PERCENT AUTO 2 % (0-6); Hematocrit 32.8 % (33.0-51.0); Hemoglobin 9.8 g/dL (11.5-16.0); IMMATURE GRAN ABSOLUTE AUTO 0.05 K/mm3 (0.00-0.10); IMMATURE GRAN PERCENT AUTO 0 % (0-1); LYMPHOCYTES ABSOLUTE AUTO 3.43 K/mm3 (0.84-5.20); LYMPHOCYTES PERCENT AUTO 25 % (21-46); MONOCYTES ABSOLUTE AUTO 1.01 K/mm3 (0.16-1.47); MONOCYTES PERCENT AUTO 7 % (4-13); Mean Corpuscular HGB Conc 29.9 g/dL (31.5-36.5); Mean Corpuscular Volume 75 fL (80-100); NEUTROPHILS ABSOLUTE AUTO 8.87 K/mm3 (1.96-9.15); NEUTROPHILS PERCENT AUTO 65 % (41-73); NRBC ABSOLUTE 0.00 K/mm3 (0.00-0.02); NRBC Auto 0.0 /100 WBC (0.0-0.2); Platelet Count 278 K/mm3 (150-400); RDW Coefficient Variation 16.2 % (11.7-14.2); RDW Standard Deviation 44.1 fL (35.1-46.3)
[2025-09-09 14:35] LABS: Alanine Aminotransfer (ALT/SGP 24.0 U/L (12-78); Albumin, Blood 2.9 g/dL (3.4-5.0); Albumin/Globulin Ratio 0.7 (0.8-1.8); Anion Gap 10.0 mmol/L (3-11); Aspartate Aminotrans (AST/SGOT 34.0 U/L (12-37); Bilirubin, Total 0.5 mg/dL (0.1-1.0); Blood Urea Nitrogen 15.0 mg/dL (8-24); CO2, Blood 24.0 mmol/L (21-32); Calcium, Blood 8.9 mg/dL (8.5-10.1); Chloride, Blood 103.0 mmol/L (98-108); Creatinine, Blood 0.71 mg/dL (0.40-1.00); Globulin, Blood 4.4 g/dL (2.2-4.0); Glucose, Blood 210.0 mg/dL (70-99); Potassium, Blood 4.1 mmol/L (3.5-5.5); Sodium, Blood 133.0 mmol/L (136-145); Total Protein, Blood 7.3 g/dL (6.4-8.2)
[2025-09-09] MEDS ORDERED: HYDROmorphone HCl/Pf 1MG SYR IV ONE (16:45)
[2025-09-09] MEDS ORDERED: Ondansetron HCl 2 MG / ML 2ML Vial IV ONE (16:45)
[2025-09-09] MEDS ORDERED: Vancomycin (Pharmacy Consult) IV PRN (18:10)
[2025-09-09] MEDS ORDERED: Piperacillin/Tazobactam Sod 4.5 GM in NS 100 ML IV ONE (18:15)
[2025-09-09 21:00] VITALS: BP 98/48
== END 2025-09-09 22:28 | disposition short-term general hospital (02) ==
LOC: ER 13:41
PROVIDERS: Emergency Medicine
DX: E11.69 Type 2 diabetes mellitus with other specified complication (principal); M86.9 Osteomyelitis, unspecified; Z88.5 Allergy status to narcotic agent; Z88.8 Allergy status to other drugs, medicaments and biological substances; Z79.84 Long term (current) use of oral hypoglycemic drugs; Z79.890 Hormone replacement therapy; Z79.85 Long-term (current) use of injectable non-insulin antidiabetic drugs; Z79.899 Other long term (current) drug therapy; Z59.89 Other problems related to housing and economic circumstances
CPT/HCPCS: 70450; 80053; 82947; 85025; 96365-59; 96367; 96375; 99285-25; A9270; J1171; J2405; J2543; J3373; J7050

== ENCOUNTER 2025-09-26 00:48 | Day surgery (SDC) | payer MEDICARE, OTHER ==
[2025-09-26] MEDS ORDERED: Ertapenem Sodium 1,000 MG in NS 50 ML IV SCH (01:00)
[2025-09-26 16:25] VITALS: BP 125/64
== END 2025-09-26 16:56 | disposition home or self-care (01) ==
LOC: ATC 00:48
DX: E11.69 Type 2 diabetes mellitus with other specified complication (principal); M86.68 Other chronic osteomyelitis, other site; E11.42 Type 2 diabetes mellitus with diabetic polyneuropathy; K21.9 Gastro-esophageal reflux disease without esophagitis; E78.5 Hyperlipidemia, unspecified; J45.50 Severe persistent asthma, uncomplicated; Z88.8 Allergy status to other drugs, medicaments and biological substances; Z79.4 Long term (current) use of insulin; Z79.899 Other long term (current) drug therapy
CPT/HCPCS: 96365; J1335

== ENCOUNTER 2025-09-27 02:13 | Day surgery (SDC) | payer MEDICARE, OTHER ==
[~2025-09-27 02:13] MED LIST changes: +Ertapenem Sodium 1,000 MG in NS 50 ML IV SCH
[2025-09-27 16:32] VITALS: BP 133/59
== END 2025-09-27 16:50 | disposition home or self-care (01) ==
LOC: ATC 02:13
DX: E11.69 Type 2 diabetes mellitus with other specified complication (principal); M86.68 Other chronic osteomyelitis, other site; E11.42 Type 2 diabetes mellitus with diabetic polyneuropathy; E78.5 Hyperlipidemia, unspecified; J45.50 Severe persistent asthma, uncomplicated; Z88.8 Allergy status to other drugs, medicaments and biological substances
CPT/HCPCS: 96365; J1335

== ENCOUNTER 2025-09-28 00:46 | Day surgery (SDC) | payer MEDICARE, OTHER ==
[~2025-09-28 00:46] MED LIST changes: -Ertapenem Sodium 1,000 MG in NS 50 ML IV SCH
[2025-09-28] MEDS ORDERED: Ertapenem Sodium 1,000 MG in NS 50 ML IV SCH (01:00)
[2025-09-28 14:10] VITALS: BP 124/68
== END 2025-09-28 14:27 | disposition home or self-care (01) ==
LOC: ATC 00:46
DX: E11.69 Type 2 diabetes mellitus with other specified complication (principal); M86.68 Other chronic osteomyelitis, other site; J45.50 Severe persistent asthma, uncomplicated; E11.42 Type 2 diabetes mellitus with diabetic polyneuropathy; E78.5 Hyperlipidemia, unspecified; K21.9 Gastro-esophageal reflux disease without esophagitis; Z79.899 Other long term (current) drug therapy
CPT/HCPCS: 96365; J1335

== ENCOUNTER 2025-09-29 00:17 | Day surgery (SDC) | payer MEDICARE, OTHER ==
[2025-09-29] MEDS ORDERED: Ertapenem Sodium 1,000 MG in NS 50 ML IV SCH (01:00)
[2025-09-29 13:35] VITALS: BP 151/89
== END 2025-09-29 14:05 | disposition home or self-care (01) ==
LOC: ATC 00:17
DX: M86.8X8 Other osteomyelitis, other site (principal); E11.69 Type 2 diabetes mellitus with other specified complication; R41.89 Other symptoms and signs involving cognitive functions and awareness; R26.9 Unspecified abnormalities of gait and mobility; G06.2 Extradural and subdural abscess, unspecified; G04.90 Encephalitis and encephalomyelitis, unspecified; D50.9 Iron deficiency anemia, unspecified; E03.9 Hypothyroidism, unspecified; E11.42 Type 2 diabetes mellitus with diabetic polyneuropathy; E78.5 Hyperlipidemia, unspecified; F41.8 Other specified anxiety disorders; F17.200 Nicotine dependence, unspecified, uncomplicated; G47.00 Insomnia, unspecified; G25.81 Restless legs syndrome; G47.33 Obstructive sleep apnea (adult) (pediatric); G89.29 Other chronic pain; J45.51 Severe persistent asthma with (acute) exacerbation; K21.9 Gastro-esophageal reflux disease without esophagitis; M54.50 Low back pain, unspecified; Z79.4 Long term (current) use of insulin; Z79.899 Other long term (current) drug therapy; Z88.5 Allergy status to narcotic agent; Z88.8 Allergy status to other drugs, medicaments and biological substances
CPT/HCPCS: 96365; J1335

== ENCOUNTER 2025-10-01 09:22 | Day surgery (SDC) | payer MEDICARE, OTHER ==
[~2025-10-01 09:22] MED LIST changes: +Ertapenem Sodium 1,000 MG in NS 50 ML IV SCH
[2025-10-01 14:42] VITALS: BP 90/50
[2025-10-01 15:04] LABS: BASOPHILS ABSOLUTE AUTO 0.05 K/mm3 (0.00-0.23); BASOPHILS PERCENT AUTO 1 % (0-2); EOSINOPHILS ABSOLUTE AUTO 0.31 K/mm3 (0.00-0.68); EOSINOPHILS PERCENT AUTO 5 % (0-6); Hematocrit 33.2 % (33.0-51.0); Hemoglobin 10.3 g/dL (11.5-16.0); IMMATURE GRAN ABSOLUTE AUTO 0.02 K/mm3 (0.00-0.10); IMMATURE GRAN PERCENT AUTO 0 % (0-1); LYMPHOCYTES ABSOLUTE AUTO 2.84 K/mm3 (0.84-5.20); LYMPHOCYTES PERCENT AUTO 45 % (21-46); MONOCYTES ABSOLUTE AUTO 0.69 K/mm3 (0.16-1.47); MONOCYTES PERCENT AUTO 11 % (4-13); Mean Corpuscular HGB Conc 31.0 g/dL (31.5-36.5); Mean Corpuscular Volume 76 fL (80-100); NEUTROPHILS ABSOLUTE AUTO 2.38 K/mm3 (1.96-9.15); NEUTROPHILS PERCENT AUTO 38 % (41-73); NRBC ABSOLUTE 0.00 K/mm3 (0.00-0.02); NRBC Auto 0.0 /100 WBC (0.0-0.2); Platelet Count 217 K/mm3 (150-400); RDW Coefficient Variation 21.3 % (11.7-14.2); RDW Standard Deviation 57.5 fL (35.1-46.3)
[2025-10-01 15:33] LABS: C-REACTIVE PROTEIN, EXT RANGE 3.75 mg/dL (0.000-0.300)
[2025-10-01 16:01] LABS: Alanine Aminotransfer (ALT/SGP 31.0 U/L (12-78); Albumin, Blood 3.7 g/dL (3.4-5.0); Albumin/Globulin Ratio 1.0 (0.8-1.8); Anion Gap 12.0 mmol/L (3-11); Aspartate Aminotrans (AST/SGOT 24.0 U/L (12-37); Bilirubin, Total 0.2 mg/dL (0.1-1.0); Blood Urea Nitrogen 23.0 mg/dL (8-24); CO2, Blood 25.0 mmol/L (21-32); Calcium, Blood 9.6 mg/dL (8.5-10.1); Chloride, Blood 101.0 mmol/L (98-108); Creatinine, Blood 0.88 mg/dL (0.40-1.00); Globulin, Blood 3.8 g/dL (2.2-4.0); Glucose, Blood 170.0 mg/dL (70-99); Potassium, Blood 3.9 mmol/L (3.5-5.5); Sodium, Blood 134.0 mmol/L (136-145); Total Protein, Blood 7.5 g/dL (6.4-8.2)
== END 2025-10-01 15:00 | disposition home or self-care (01) ==
LOC: ATC 09:22
PROVIDERS: Internal Medicine Infectious Disease
DX: E11.69 Type 2 diabetes mellitus with other specified complication (principal); M86.18 Other acute osteomyelitis, other site; E11.42 Type 2 diabetes mellitus with diabetic polyneuropathy; E78.5 Hyperlipidemia, unspecified; E03.9 Hypothyroidism, unspecified; K21.9 Gastro-esophageal reflux disease without esophagitis; Z88.8 Allergy status to other drugs, medicaments and biological substances
CPT/HCPCS: 80053; 85025; 86140; 96365; J1335

== ENCOUNTER 2025-10-02 07:23 | Day surgery (SDC) | payer MEDICARE, OTHER ==
[2025-10-02 14:11] VITALS: BP 107/49
== END 2025-10-02 14:30 | disposition home or self-care (01) ==
LOC: ATC 07:23
DX: E11.69 Type 2 diabetes mellitus with other specified complication (principal); M86.9 Osteomyelitis, unspecified; Z74.09 Other reduced mobility; R26.9 Unspecified abnormalities of gait and mobility; R41.89 Other symptoms and signs involving cognitive functions and awareness; G06.2 Extradural and subdural abscess, unspecified; G04.90 Encephalitis and encephalomyelitis, unspecified; G25.81 Restless legs syndrome; G47.33 Obstructive sleep apnea (adult) (pediatric); G89.29 Other chronic pain; D50.9 Iron deficiency anemia, unspecified; E03.9 Hypothyroidism, unspecified; E11.42 Type 2 diabetes mellitus with diabetic polyneuropathy; E78.5 Hyperlipidemia, unspecified; F17.200 Nicotine dependence, unspecified, uncomplicated; J45.51 Severe persistent asthma with (acute) exacerbation; Z79.4 Long term (current) use of insulin; Z79.84 Long term (current) use of oral hypoglycemic drugs; Z79.85 Long-term (current) use of injectable non-insulin antidiabetic drugs; Z79.890 Hormone replacement therapy; Z79.899 Other long term (current) drug therapy; Z98.890 Other specified postprocedural states
CPT/HCPCS: 96365; J1335